=== PATIENT | female | born 1995 | race Caucasian/White ===

== ENCOUNTER → 2020-10-01 14:02 | Outpatient (BNVA) | payer OTHER, SELFPAY | PROVIDERS: PCP Internal Medicine; Referring Provider Internal Medicine; Visit Provider Advanced Practice Midwife | DX: Z30.41 Encounter for surveillance of contraceptive pills (principal) | CPT/HCPCS: 99212 ==

== ENCOUNTER 2020-12-31 09:21 | Outpatient (REF) | payer OTHER, SELFPAY ==
--- NOTE | ~2020-12-31 | XR_ITS ---
EXAMINATION: XR FOOT, LEFT CLINICAL INFORMATION: Pain in left foot COMPARISON: None TECHNIQUE: AP, lateral, and oblique views of the left foot. FINDINGS: The bones and soft tissues are normal. No fracture. Alignment is anatomic. Joint spaces are maintained. XR/XR foot LT min 3V IMPRESSION: Normal left foot.
== END 2020-12-31 09:22 | disposition home or self-care (01) ==
LOC: HO.HMGCX 09:21
PROVIDERS: PCP Internal Medicine; Visit Provider Hospitalist
DX: M79.672 Pain in left foot (principal)
CPT/HCPCS: 73630

== ENCOUNTER 2021-02-26 13:30 | Outpatient (RCR) | payer OTHER, SELFPAY | END 2021-03-25 16:24 | disposition other institution (70) | LOC: HO.OT 13:30 | PROVIDERS: PCP Internal Medicine; Visit Provider Internal Medicine | DX: G56.01 Carpal tunnel syndrome, right upper limb (principal) | CPT/HCPCS: 29125; 97035; 97110; 97165; 97760 ==

== ENCOUNTER 2021-03-30 09:30 | Outpatient (REF) | payer OTHER, SELFPAY ==
--- NOTE | ~2021-03-30 | XR_ITS ---
EXAMINATION: XR CERVICAL SPINE CLINICAL INFORMATION: Neck pain. COMPARISON: None TECHNIQUE: 3 views of the cervical spine were obtained. FINDINGS: There are no prevertebral soft tissue or bony abnormalities demonstrated. No compression fractures or subluxations are identified. Alignment is maintained at the atlanto-axial articulation. The disc spaces are preserved. No endplate changes are seen. The prevertebral soft tissues are normal. The foramina are patent. XR/XR cervical spine 4V IMPRESSION: Unremarkable cervical spine exam.
== END 2021-03-30 09:31 | disposition home or self-care (01) ==
LOC: HO.XRAY 09:30
PROVIDERS: PCP Internal Medicine; Visit Provider Chiropractor
DX: M54.2 Cervicalgia (principal)
CPT/HCPCS: 72050

== ENCOUNTER 2021-09-25 10:09 | Outpatient (REF) | payer OTHER, SELFPAY ==
--- NOTE | 2021-09-25 09:45 | EMG_ITS ---
This is a 26-year-old woman who has had right hand numbness for 5 years and said that she recently dropped something and hurt her leg because she could not hold on. PHYSICAL EXAMINATION: On examination, she is alert and oriented with normal intellectual functions. She suffers from extreme anxiety and actually vomited and became dizzy after the test. Neurological exam was normal. IMPRESSION: Rule out carpal tunnel syndrome. Nerve conduction EMG study: Normal electrodiagnostic study of the right upper extremity with no evidence of carpal tunnel syndrome or nerve entrapment. Normal EMG of the right C5-T1 innervated muscles. MD ABHINAV Bran/PETER / [id number]
== END 2021-09-25 10:10 | disposition home or self-care (01) ==
LOC: HO.NEURO 10:09
PROVIDERS: Visit Provider Internal Medicine
DX: G56.01 Carpal tunnel syndrome, right upper limb (principal)
CPT/HCPCS: 95885; 95910

== ENCOUNTER 2021-10-07 13:58 | Outpatient (REF) | payer OTHER, SELFPAY ==
[2021-10-08 03:00] LABS: CT PCR NOT DETECTED (Not Detect.); NG PCR NOT DETECTED (Not Detect.)
[2021-10-08 09:40] LABS: BV Int Neg Control Negative (Negative); BV Int Pos Control Positive (Positive)
== END 2021-10-07 13:59 | disposition home or self-care (01) ==
LOC: HO.LAB 13:58
PROVIDERS: Visit Provider Advanced Practice Midwife
DX: Z30.09 Encounter for other general counseling and advice on contraception (principal); Z20.2 Contact with and (suspected) exposure to infections with a predominantly sexual mode of transmission; E66.9 Obesity, unspecified; Z68.31 Body mass index [BMI] 31.0-31.9, adult; Z71.3 Dietary counseling and surveillance
CPT/HCPCS: 87480; 87491; 87510; 87591; 87660; 88142

== ENCOUNTER 2022-10-10 14:04 | Outpatient (REF) | payer OTHER, SELFPAY | END 2022-10-10 14:05 | disposition home or self-care (01) | LOC: HO.LNP 14:04 | PROVIDERS: Visit Provider Advanced Practice Midwife | DX: Z01.419 Encounter for gynecological examination (general) (routine) without abnormal findings (principal) | CPT/HCPCS: 88142 ==

== ENCOUNTER 2023-07-03 14:54 | Outpatient (AMB) | payer OTHER, SELFPAY ==
--- NOTE | 2023-07-03 15:03 | AM.OFFVISNUR ---
Intake Intake Visit Reasons: tdap Allergies amoxicillin Allergy (Intermediate, Verified 10/10/22 13:30) rash Immunizations Boostrix Tdap Performing Provider: Shayna Almeida MD Administered by: Akua Barnard RN on 07/03/23 15:10 Dose Route Admin Location Lot Number Expiration Date NDC [facility] Administrator 0.5 mL IM Left Deltoid [id number] 10/14/25 [id number] [employer] VIS Given Date VIS Provided VIS Publication Date 07/03/23 Single Vaccine 21 Eligibility Eligibility Date Funding Source Not [facility] Eligible 07/03/23 Private Coding Diagnoses Assessment & Plan Assessment & Plan Orders: Orders TDaP Immunization Today Z23 - Encounter for immunization
== END 2023-07-03 15:11 | disposition home or self-care (01) ==
PROVIDERS: PCP Internal Medicine; Visit Provider Internal Medicine
DX: Z23 Encounter for immunization (principal)
CPT/HCPCS: 90471; 90715

== ENCOUNTER 2023-08-20 10:08 | Outpatient (AMB) | payer OTHER, SELFPAY ==
[2023-08-20 10:22] VITALS: BP 110/82; PULSE 83; O2SAT 98; BMI 28.8
--- NOTE | 2023-08-20 10:22 | A.OFFPC_ITS ---
Vital Signs 08/20/23 10:22 Height 5 ft 4 in Weight 168 lb BMI 28.8 BP 110/82 Blood Pressure Location Lt brachial Position Sitting Pulse 83 Pulse Source Pulse Oximeter Pulse Oximetry (%) 98 Oxygen Delivery Method Room Air Intake Visit Reasons: physical exam Intake Note: Patient here for a physical exam Director Of Optimization Required: No Accompanied by: Self / Same As Patient Allergies amoxicillin Allergy (Intermediate, Verified 08/20/23 10:28) rash Medication List - Last Reconciled 08/20/23 by Shayna Almeida MD norgestimate-ethinyl estradiol 0.25-35 mg-mcg 1 tab PO DAILY sertraline 75 mg (1.5 x 50 mg) PO DAILY 90 days Tobacco use date assessed: 08/20/23 Dental Screening Dental Screen Date: 08/20/23 Did you have a dental visit in the last 12 months?: No Did you have a dental problem in the last 6 months where you did not have access to dental care?: No Was dental information given to patient?: Patient has dentist HPI HPI Comments History of Present Illness Details This is a 28-year-old female that comes for her physical exam. Last Pap smear was October 2022 and was normal. No chest pain or shortness of breath. She intentionally lost weight. Has mild major depression stable with sertraline and she does follows up with counseling. [facility] Medical History Class 1 obesity with body mass index (BMI) of 31.0 to 31.9 in adult Class 1 obesity with body mass index (BMI) of 33.0 to 33.9 in adult BLANKA (generalized anxiety disorder) Immunization due Immunization history incomplete Mild recurrent major depression Right carpal tunnel syndrome Surgical History History of wisdom tooth extraction Family History Maternal Grandmother Throat cancer Maternal Grandfather Stroke Heart attack Family/Other Mental health disorder Substance use disorder Father No problems noted. Mother No problems noted. Social History Household Members: Family Housing: House Alcohol intake: current Alcohol intake frequency: holidays/special occasions only Alcohol type: hard liquor Patient Tobacco Use Status: Never used Tobacco e-Cigarette/Vaping Use: Never Used Second Hand Smoke Exposure: No Substance Use Type: Marijuana service: No Current occupational status: employed Current occupation: [employer] Current occupational exposures/hazards: No Gender identity: Female Cognitive needs: No Hearing needs: No Vision needs: Yes Female Reproductive History Menstrual Age of Menarche: 12 Questionnaire PHQ-9 Over the last 2 weeks, how often have you been bothered by any of the following problems? 1. Little interest or pleasure in doing things: several days 2. Feeling down, depressed, or hopeless: several days 3. Trouble falling or staying asleep, or sleeping too much: not at all 4. Feeling tired or having little energy: several days 5. Poor appetite or overeating: nearly every day 6. Feeling bad about yourself - or that you are a failure or have let yourself or your family down: several days 7. Trouble concentrating on things, such as reading the newspaper or watching television: several days 8. Moving or speaking so slowly that other people could have noticed. Or the opposite - being so fidgety or restless that you have been moving around a lot more than usual: not at all 9. Thoughts that you would be better off or of hurting yourself in some way: not at all Total score: 8 Depression Screening Interpretation: Positive Depression Screening Follow-up: Existing condition and Community Mental Health Worker F/U Depression Screening Done: Yes 57501 - PHQ-9 Billing: Yes Source: Developed by Drs. Jose Eduardo Latif, Rosa Doyle, Montrell Domínguez and colleagues, with an educational vane from [employer]. Thrive Questionnaire Date Thrive assessed: 08/20/23 I am a: Patient What is your living situation today?: I have a steady place to live Within the past 12 months, did the food you bought not last and you didn't have the money to get more?: Never true Within the past 12 months, did you worry whether your food would run out before you got money to buy more?: Never true Do you have trouble paying for medicines?: No Do you have trouble getting transportation to medical appointments?: No Do you have trouble paying your heating and electricity bill?: No Do you have trouble taking care of your child, family member or friend?: No Do you have trouble with day-to-day activities such as bathing, preparing meals, shopping, managing finances, etc.?: No Are you currently unemployed and looking for a job?: No Are you interested in more education?: No Please select the resources that you would like help with: None Currently or been in a relationship where the following occur: no concerns reported AUDIT C Alcohol Use Questionnaire (AUDIT-C) 1. How often do you have a drink containing alcohol?: Never Total Score: 0 BLANKA-7 AMB Questionnaire BLANKA-7 Date BLANKA - 7 assessed: 08/20/23 Feeling nervous, anxious, or on edge: 1 = Several days Not being able to stop or control worryin = Not at all Worrying too much about different things: 1 = Several days Trouble relaxin = Not at all Being so restless that it is hard to sit still: 0 = Not at all Becoming easily annoyed or irritable: 1 = Several days Feeling afraid as if something awful might happen: 0 = Not at all Total BLANKA-7 score (0-4 normal; 5-9 mild; 10-14 moderate; 15-21 severe): 3 Source: Developed by Drs. Jose Eduardo Latif, Rosa Doyle, Montrell Domínguez and colleagues, with an educational vane from [employer]. BLANKA-7 Assessment Billing BLANKA-7 Assessment Tool: BLANKA-7 Assessment 51023 Review of Systems Const All systems reviewed & are unremarkable except as noted in HPI and below Eyes Reports no additional complaints, Denies change in vision and Denies other visual disturbances Card Denies chest pain at rest, Denies chest pain with activity, Denies edema, Denies irregular heart rhythm, Denies claudication, Denies dyspnea, Denies dyspnea on exertion, Denies orthopnea, Denies paroxysmal nocturnal dyspnea and Denies slow heart rate Resp Denies cough, Denies dyspnea and Denies dyspnea on exertion GI Denies abdominal pain, Denies change in bowel habits, Denies excessive flatus, Denies nausea and Denies vomiting Denies urinary incontinence, Denies urinary hesitancy and Denies urinary urgency Musc Denies abnormal gait, Denies atrophy, Denies deformity and Denies limited range of motion Skin/Breast Denies bleeding lesions, Denies changing lesions and Denies rash Neuro Denies abnormal gait and Denies lack of coordination Physical exam (Primary Care) Vital Signs: Last Vital Signs Pulse 83 08/20/23 10:22 BP 110/82 08/20/23 10:22 Pulse Ox 98 08/20/23 10:22 Oxygen Delivery Method Room Air 08/20/23 10:22 BMI result Body Mass Index 28.8 Tobacco/Smoking Status: Tobacco use Status Tobacco use date assessed 08/20/23 08/20/23 10:26 Patient Tobacco Use Status Never used Tobacco 08/20/23 10:26 e-Cigarette/Vaping Use Never Used 08/20/23 10:26 PHQ-9: PHQ-9 Score PHQ-9: Total score 8 08/20/23 10:26 Depression Screening Interpretation: Positive Depression Screening Follow-up: Existing condition and Community Mental Health Worker F/U Thrive Assessment: Date of Thrive Assessment Date Thrive assessed 08/20/23 08/20/23 10:26 Currently or been in a relationship where the following occur: no concerns reported Const Orientation/consciousness: patient oriented x3 HENMT Head: Yes normal to inspection, Yes normocephalic and Yes atraumatic Ears: external ears normal Eyes General: appearance normal, both eyes and all related structures Eyelids: Yes eyelids normal Conjunctivae: conjunctivae normal Neck Neck: Yes normal visual inspection and Yes supple Resp Effort & Inspection: normal respiratory effort Auscultation: clear to auscultation bilaterally Cardio Jugular venous distension: no JVD Rate: regular rate Rhythm: regular rhythm Heart sounds: S1 normal heart sound present and S2 normal heart sound present GI Inspection: Yes normal to inspection Palpation (GI): Soft to palpation and nontender Auscultation: normal bowel sounds Skin General skin exam: no rashes or lesions noted Neuro General: patient oriented x3 and no focal motor deficits Extrem General: Yes full ROM Psych Appearance: grossly normal Office Procedures Flu Questionnaire Does the patient have a severe egg allergy?: No Immunizations flu vacc [id number] 6mos up(PF) 60 mcg(15 mcgx4)/0.5 mL IM syringe Performing Provider: Shayna Almeida MD Performing Location: [facility] Documented (not given) by: RAFIA Chase on 08/20/23 10:27 Reason Not Given: Patient Refused Assessment and Plan Assessment & Plan (1) Encounter for physical examination: Code(s): Z00.00 - Encounter for general adult medical examination without abnormal findings Plan: Repeat in a year. (2) Mild recurrent major depression: Code(s): F33.0 - Major depressive disorder, recurrent, mild Plan: Continue sertraline and counseling. Orders: Orders Influenza [id number] Immunization Today Z23 - Encounter for immunization Comprehensive Jerome. Panel Fast Today Z00.00 - Encounter for general adult medical examination without abnormal findings Lipid Panel Today Z00.00 - Encounter for general adult medical examination without abnormal findings Coding Level of Care Code Est Pt Prev Care 18-39y(85585) Diagnoses Encounter for physical examination Z00.00 Mild recurrent major depression F33.0 Additional Codes BLANKA-7 Assessment Billing - BLANKA-7 Assessment Tool: BLANKA-7 Assessment 34570 ([id number]) Time Spent (min) 31
== END 2023-08-20 10:37 | disposition home or self-care (01) ==
PROVIDERS: Visit Provider Internal Medicine
DX: Z00.00 Encounter for general adult medical examination without abnormal findings (principal); F33.0 Major depressive disorder, recurrent, mild
CPT/HCPCS: 96127; 99395

== ENCOUNTER 2023-10-14 13:08 | Outpatient (AMB) | payer OTHER, SELFPAY ==
--- NOTE | 2023-10-14 13:14 | MHC.OFFVIS ---
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 annual exam/confirmed Kier Operator Required: No Onion Tier: Onion Tier Present Allergies amoxicillin Allergy (Intermediate, Verified 10/14/23 13:15) rash Medication List - Last Reconciled 10/14/23 by Tabatha Bassett CNM ascorbate calcium (vitamin C) 500 mg PO DAILY norgestimate-ethinyl estradiol 0.25-35 mg-mcg 1 tab PO DAILY sertraline 75 mg (1.5 x 50 mg) PO DAILY 90 days Is last menstrual period known: Yes Last menstrual period: 09/30/23 Do you need a note to return to daycare/school/sports/work: No HPI CREDIT COLLECTIONS REP annual exam/confirmed HPI Details 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 She has no history of abnormal Paps and her last 1 was negative and she is not due for a Pap this year. She has no concerns about STIs and declines testing at this visit today. She says her periods are normal in come right on time with her control pills. She says she has had depression since she is 6 years old and she gets very severe PMDD which is better managed now with her control pills and sertraline which she also takes. She has a therapist and psychiatrist. She also uses medical marijuana when she moves to and that helps the migraines that she gets with the PMDD, still in all the migraines are much better now that she is on the control pills and were not made worse with the pills. She is not currently interested in changing things up from this regimen at this time. 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 She is very active with their the kids at work and when she comes home she is pretty tired she eats about 2 meals a day and tries to eat well. [facility] Medical History Class 1 obesity with body mass index (BMI) of 31.0 to 31.9 in adult Class 1 obesity with body mass index (BMI) of 33.0 to 33.9 in adult BLANKA (generalized anxiety disorder) Immunization due Immunization history incomplete Mild recurrent major depression Right carpal tunnel syndrome Surgical History History of wisdom tooth extraction Family History Maternal Grandmother Throat cancer Maternal Grandfather Stroke Heart attack Family/Other Mental health disorder Substance use disorder Father No problems noted. Mother No problems noted. Social History Household Members: Family Housing: House Alcohol intake: current Alcohol intake frequency: holidays/special occasions only Alcohol type: hard liquor Patient Tobacco Use Status: Never used Tobacco e-Cigarette/Vaping Use: Never Used Second Hand Smoke Exposure: No Substance Use Type: Marijuana service: No Current occupational status: employed Current occupation: [employer] Current occupational exposures/hazards: No Gender identity: Female Cognitive needs: No Hearing needs: No Vision needs: Yes Female Reproductive History Menstrual Age of Menarche: 12 Duration of menses: 6-7 days Date of last menstrual period: 09/30/23 control method: pills Total pregnancies: 0 Date of last pap smear: 10/13/22 History of abnormal pap smear: No Physical Exam Vital Signs: Last Vital Signs BP 122/72 10/14/23 13:16 BMI result Body Mass Index 29.0 Const General: healthy appearing, comfortable, no acute distress, well developed and alert Nutritional Appearance: average body habitus Orientation/consciousness: patient oriented x3 Limitations: no limitations HEENT Head: Yes normocephalic Neck Neck: Yes normal visual inspection Chest Chest palpation & inspection: normal inspection of the chest Breast/axilla inspection: normal inspection of the breasts and normal inspection of the axillae Breast/axilla palpation: normal palpation of the breasts and normal palpation of the axillae Resp Effort & Inspection: normal respiratory effort GI Inspection: Yes normal to inspection, No Abdominal wall edema and No distended Palpation (GI): Soft to palpation and nontender Other: Normal speculum exam vagina pink moist with end of menses. Cervix nulliparous uterus small anteverted mobile nontender. Adnexa nontender not enlarged good tone with Kegel. General: Yes bladder normal to palpation External Female Exam: normal external appearance and normal appearance of the urethra Speculum Exam - Vagina: normal appearance of the vagina, normal palpation and normal vaginal discharge Speculum Exam - Cervix: normal appearance of the cervix, normal palpation and nontender Bimanual exam- vagina & uterus: normal bimanual exam, normal palpation, uterine size normal, bladder normal to palpation, consistency normal, normal palpation, uterine mobility normal, uterine shape normal, No Cervical tenderness present, non-tender and no cervical motion tenderness Bimanual Exam- Adnexa, other: normal adnexae, no masses, normal and No adnexal tenderness Neuro General: patient oriented x3 Results Reviewed Results Reviewed: Name: Shannan Lam Age/Sex: 27/F Attending: Tabatha Bassett CNM : 1995 Submitted by: Tabatha Bassett CNM Copies to: MR #: [id number] Status: DEP REF Collected: 10/10/22 Location: [facility] Received: 10/13/22 Interpretation Satisfactory for evaluation. No endocervical cells seen. Negative for intraepithelial lesion or malignancy. Clinical Information LMP: 10/11/22 Previous PAP test: 09/03/18, WNL Material Received ThinPrep-Cervical Electronically Signed By: Sobeida Clark 10/31/22 1614 The Pap Test is a screening procedure with the inherent possibility of both false negative and false positive results. Results should be interpreted in the context of historic and current clinical findings. Reliability of the Pap Test is enhanced by performing the test on a regular repetitive basis. Patient: Shannan Lam Age/Sex: 27/F MR#: [id number] Page 1 of 1 Assessment & Plan Assessment & Plan (1) Well woman exam with routine gynecological exam: Code(s): Z01.419 - Encounter for gynecological examination (general) (routine) without abnormal findings (2) Cervical cancer screening: Comment: 10/10/2022 Pap is negative Code(s): Z12.4 - Encounter for screening for malignant neoplasm of cervix (3) Counseling for control, oral contraceptives: Code(s): Z30.09 - Encounter for other general counseling and advice on contraception (4) PMDD (premenstrual dysphoric disorder): Code(s): F32.81 - Premenstrual dysphoric disorder (5) History of depression: Code(s): Z86.59 - Personal history of other mental and behavioral disorders Plan Patient is here here for pill renewal and her annual exam she declines STI testing. We discussed her history of depression and PMDD and she says both her made better with use of the control pills which also improve her migraines though she still does get them and she has been on the pills with improvement since age 18. She is not interested in changing anything at this time she she also uses medical marijuana when she needs to for the migraine headaches which she gets when she is premenstrual as well. Refills were sent to her pharmacy which is now going to be the [facility]. Reviewed it whether not she had a need for future plans for childbearing and stopping pills but she said not at this time she wants to get the depression under better control and finances as well. Her partner has 2 children so theyre busy. Medications: Refilled norgestimate-ethinyl estradiol 0.25-35 mg-mcg 1 tab PO DAILY 84 tabs 4RF norgestimate-ethinyl estradiol 0.25-35 mg-mcg 1 tab PO DAILY 84 tabs 4RF Coding Level of Care Code Est Pt Prev Care 18-39y(97910) Diagnoses Well woman exam with routine gynecological exam Z01.419 Cervical cancer screening Z12.4 Counseling for control, oral contraceptives Z30.09 PMDD (premenstrual dysphoric disorder) F32.81 History of depression Z86.59
[2023-10-14 13:16] VITALS: BP 122/72; BMI 29.0
== END 2023-10-14 13:56 | disposition home or self-care (01) ==
PROVIDERS: Visit Provider Advanced Practice Midwife
DX: Z01.419 Encounter for gynecological examination (general) (routine) without abnormal findings (principal); Z12.4 Encounter for screening for malignant neoplasm of cervix; Z30.09 Encounter for other general counseling and advice on contraception; F32.81 Premenstrual dysphoric disorder; Z86.59 Personal history of other mental and behavioral disorders
CPT/HCPCS: 99395

== ENCOUNTER → 2023-10-14 13:08 | Outpatient (BNVA) | payer OTHER, SELFPAY | PROVIDERS: Visit Provider Advanced Practice Midwife ==

== ENCOUNTER 2024-08-22 12:54 | Outpatient (AMB) | payer OTHER, SELFPAY ==
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
[2024-08-22 12:58] VITALS: BP 110/72; BMI 25.2
== END 2024-08-22 13:18 | disposition home or self-care (01) ==
PROVIDERS: PCP Internal Medicine; Visit Provider Internal Medicine
DX: Z00.00 Encounter for general adult medical examination without abnormal findings (principal); F33.1 Major depressive disorder, recurrent, moderate; M25.511 Pain in right shoulder; G89.29 Other chronic pain

== ENCOUNTER → 2024-08-22 12:54 | Outpatient (BNVA) | payer OTHER, SELFPAY | PROVIDERS: PCP Internal Medicine; Visit Provider Internal Medicine | DX: Z00.00 Encounter for general adult medical examination without abnormal findings (principal); F33.1 Major depressive disorder, recurrent, moderate; G89.29 Other chronic pain; M25.511 Pain in right shoulder; Z28.21 Immunization not carried out because of patient refusal | CPT/HCPCS: 96127 ==

== ENCOUNTER 2024-10-18 15:00 | Outpatient (AMB) | payer OTHER, SELFPAY ==
[2024-10-18 15:06] VITALS: BP 118/70; BMI 24.2
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
--- OUTSIDE RECORDS SUMMARY | 2024-10-19 22:18 | XMS_ITS | Data Portability ---
Author Organization [facility], [address] Address [address] [place] [address] Care Team Providers Care Continuity Person Name Role Phone JEN THOMASON Primary Care Provider Assessment No assessment recorded. Plan of Treatment Reminders Order Date Submit Date Provider Last Modified By Organization Details Last Modified Time Details Appointments None recorded. Lab None recorded. Referral None recorded. Procedures None recorded. Surgeries None recorded. Imaging XR, toe(s), 2 or more view 2022 023 [facility], [address] [place] [address], [address], 21:02:09 Medication Orders cyclobenzap rine 10 mg tablet 2022 023 [facility] #[id number], [address] [place], [address], 19:34:55 diclofenac sodium 50 mg tablet,steve yed release 2022 023 [facility] #[id number], [address] [place], [address], 19:34:56 Patient TargetsNo targets recorded. Patient Instructions Encounter Date Encounter Id Patient Instructions Last Modified By Organization Details Last Modified Time 01/15/2023 [id number] neck pain: care instructions [id number] Not available 01/15/2023 12:54:07 05/14/2023 [id number] contusion: care instructions [email or web address] Not available 05/14/2023 20:36:11 Based on your presentation and exam, you are diagnosed with an Toe/Foot Contusion. The x-ray did not show any acute fracture per you from the Emergency Room - we are not going to repeat that x-ray at this time. My suggestions for this condition include: 1. Ice 2. Elevate 3. Rest 4. Make sure you stretch your Foot/ankle regularly for the next 1-2 weeks. (Providing Handout) 5. Take Ibuprofen or Tylenol if you do not have any allergies to these medications. If you take a blood thinner you should not take NSAIDS like Ibuprofen. 6. After 3 days of icing - I would switch to heat - this will help reabsorb any bruising or swelling. If you are still having pain after 7-10 days, I would suggest that you follow up with our office again or schedule and appointment with an orthopedist. I would be seen more urgently if you develop any of the following symptoms. 1. Numbness 2. Cold Extremities 3. Worsening Pain 4. Skin Redness 5. Calf Swelling Thank you for using [facility], please contact our office if you have any questions or concerns. [email or web address] Not available 05/14/2023 20:34:33 Reason for Referral None Reported. Results Created Date Observation Date Name Description Value Unit Range Abnormal Flag Note LastModifiedBy Organization Detail LastModifiedTime 05/14/20 23 05/14/2023 XR, toe(s ), 2 or more view No observ ation record ed. [email or web address] [facility] [address] [place], [address], 05/15/2023 08:09:45 Result Notes None recorded. Problems Name Problem SNOMED Code Status Onset Date Resolution Date Notes Provider Name and Address Organization Details Recorded Time Premenstrual dysphoric disorder 646562 Active 2022 CEASARSami HURTADO null, PA - [facility] 3 12:18:05 Mixed anxiety and depressive disorder 999274786 Active 2022 CEASARSami HURTADO null, PA - [facility] 3 12:18:12 Problem Notes None recorded. Procedures Surgical History Date Name Laterality Status Provider Name and Address Organization Details Recorded Time 7 extraction of wisdom tooth completed CEASAR HURTADO PA - [facility] 01/15/2023 12:19:00 Imaging Results Imaging Date Name Status LastModified by Organiz ation Details LastModified Time 05/14/2023 XR, toe(s), 2 or more view completed [facility] [address] [facility], [place], [address], 05/15/2023 08:09:45 Procedure Notes None recorded. Medical Equipment None Reported. Allergies Allergen ID Allergen Name Allergen Category Reaction Reaction Severity Criticality Documentation Date Start Date Code Code System Note Provider Name and Address Organization Details Recorded Time 038905 amoxicill in medicatio n rash moderate Not available 01/15/2023 723 [facility] CEASAR herrera PA - [facility] 3 12:16:18 Medications Name Sig Start Date Stop Date Status Note LastModified by Organization Details LastModified Time cyclobenzapri ne 10 mg tablet Take 1 tablet 3 times a day by oral route for 10 days. 05/14 completed Not Available Not Available Not Available sertraline 75 mg active Not Available Not Av ailable Not Available norgestimate 0.25 mg-ethinyl estradiol 35 mcg (21) tablet Take by oral route. active Not Available Not Available No t Available Vitals Date Recorded Body height Body mass index (BMI) Body weight Respiratory rate Oxygen saturation Oxygen saturation in Arterial blood by Pulse oximetry Heart rate Body temperature Systolic blood pressure Diastolic blood pressure Provider Name and Address Organization Details Last Updated DateTime 3 162.56 cm 29.2 kg/m2 10310.7 g 18 /min 99 % 99 % 87 /min 99.5 [degF] 121 mm[Hg] 87 mm[Hg] Milli Luna PA - [facility] 3 19:37:00 Date Recorded Body height Body mass index (BMI) Body weight Body temperature Respiratory rate Oxygen saturation Oxygen saturation in Arterial blood by Pulse oximetry Heart rate Systolic blood pressure Diastolic blood pressure Provider Name and Address Organization Details Last Updated DateTime 3 162.56 cm 29.7 kg/m2 03467.4 8 g 97.7 [degF] 18 /min 97 % 97 % 87 /min 108 mm[Hg] 76 mm[Hg] CEASAR GRAFFO PA - [facility] 12:20:08 Social History Question Answer Notes LastModified by Organizat ion Details LastModified Time Tobacco Smoking Status Never Smoker CEASAR herrera, PA - [facility] 01/15/2023 12:18:45 What Is Your Level Of Alcohol Consumption? None Information not available 01/15/2023 Which Illicit Or Recreational Drugs Have You Used? Marijuana Information not available 01/15/2023 Do You Use Any Illicit Or Recreational Drugs? Yes Information not available 01/15/2023 Have You Recently Traveled Abroad? No Information not available 01/15/2023 Do You Or Have You Ever Used Any Other Forms Of Tobacco Or Nicotine? No Information not available 01/15/2023 Sex: Unknown Functional Status None recorded. Mental Status None recorded. Family History Relationship Description Onset Age of this Age Resolved Age Notes LastModified by Organization Details LastModified Time Father Hypertensive disorder Not available 2022 12:18:25 Father Hypercholest erolemia Not available 2022 12:18:31 Medical History No medical history recorded. Gynecological History Statement/Question Response Date of LMP 04/16/2023 Is there any chance of ? No Obstetrics History GPAL:G 0 P 0 0 0 0 Immunizations Vaccine Type Date Status Note Provider Nam e and Address Organization Details Recorded Time COVID-19, mRNA, LNP-S, PF, 100 mcg/0.5mL dose or 50 mcg/0.25mL dose 11/27/2020 completed CEASAR DEPINTO null, PA - [facility] 01/15/2023 12:16:08 COVID-19, mRNA, LNP-S, PF, 100 mcg/0.5mL dose or 50 mcg/0.25mL dose 12/26/2020 completed CEASAR DEPINTO null, PA - [facility] 01/15/2023 12:16:08 COVID-19, mRNA, LNP-S, PF, 100 mcg/0.5mL dose or 50 mcg/0.25mL dose 09/20/2021 completed CEASAR DEPINTO null, PA - [facility] 01/15/2023 12:16:08 Hep A, adult 07/07/2016 completed CEASAR DEPINTO null, PA - [facility] 01/15/2023 12:16:08 Hep A, adult 09/18/2015 completed CEASAR DEPINTO null, PA - [facility] 01/15/2023 12:16:08 Past Encounters Encounter ID Performer Location Encounter Start Date Encounter Closed Date Diagnosis/Indication Diagnosis SNOMED-CT Code Diagnosis ICD10 Code [id number] [address] [place] [address] 06/06/2017 16:03:59 06/06/2017 17:34:03 [id number] MARILEE CHAIDEZ MD [address] [place] [phone] 01/15/2023 10:38:04 01/15/2023 13:00:35 Strain of muscle of left shoulder 1039992069 [id number] S46.012A [id number] CLAUDIA RICO [address] [place] [address] 05/14/2023 18:52:21 05/14/2023 20:37:55 Pain of toe of right foot 3305037011 45996 M79.674 Contusion of lesser toe of right foot 2291038043 9870056 S90.121A Health Concerns Section Related Observation LastModified by Organization Detai ls LastModified Time None Recorded Concern Status LastModified by Organization Details LastModified Time None Recorded Advance Directives Directive None Recorded Payers Encounter Date Sequence Insurance Name Policy Number Policy Lopez Covered Member ID Lopez Member ID Guarantor Name 06/06/2017 1 [place] [id number] Nestor Lam [id number] Shannan Lam 01/15/2023 1 [facility] [id number] Shannan Lam [id number] Shannan Lam 05/14/2023 1 [facility] [id number] Shannan Lam [id number] Shannan Lam Notes Date Note Type Note Provider Name and Address Organization Details Recorded Time 3 text/html Neck UCReported bypatient.Location:left Quality:aching; sharp Severity:severe; pain level 8/10 Timing:acute Context:cannot identify Alleviating Factors:nothing helps Aggravating Factors:sitting; twisting MARILEE CHAIDEZ MD [address] [place], [address], PA - [facility] 01/15/2023 13:31:17 3 text/html ToesReported bypatient.source of patient informationInformation obtained from patient; Patient arrived at Urgent Care ambulatory Location:right Quality:sharp Severity:moderate Duration:2 days Timing:acute Context:The patient stubbed her foot in the middle of the night. Associated Symptoms:swelling;ecchymosi s Previous Surgery:none Prior Imaging:noneNotes:The patient reports that she stubbed her toe in the middle of the night 2 days ago. PAin in the 4th digit on the right foot. She reports she rested but went back to work today and is having pain. There is bruising on the foot. The patient reports no previous history of toe pain but she does have ankle pain chronically. CLAUDIA RICO [address] [facility] [place], [address], PA - [facility] 05/14/2023 20:40:36 OBGyn Episode No OBEpisode recorded.
== END 2024-10-18 15:54 | disposition home or self-care (01) ==
PROVIDERS: PCP Internal Medicine; Visit Provider Advanced Practice Midwife
DX: R45.86 Emotional lability (principal)
CPT/HCPCS: 99213

== ENCOUNTER 2025-03-17 08:30 | Outpatient (RCR) | payer BC, SELFPAY ==
[2025-03-03 09:38] VITALS: BP 90/60; PULSE 80; TEMP 37.1; BMI 25.3
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
--- NOTE | 2025-03-06 18:55 | P.HPPSP_ITS ---
HPI Date of Service: 03/06/25 Chief Complaint: depression,anxiety Sources of Information: patient interviewed, chart reviewed and crisis/core team assessment reviewed [facility] Medical History (Updated 03/09/25 @ 08:21 by Arielle Browne MD) PMDD (premenstrual dysphoric disorder) GERD (gastroesophageal reflux disease) History of depression Class 1 obesity with body mass index (BMI) of 31.0 to 31.9 in adult Class 1 obesity with body mass index (BMI) of 33.0 to 33.9 in adult BLANKA (generalized anxiety disorder) Immunization due Immunization history incomplete Mild recurrent major depression Right carpal tunnel syndrome Surgical History History of wisdom tooth extraction Diagnostics Vital Signs (24Hr): BMI result Body Mass Index 25.3 Meds/Allergies Meds Home Medications ?Medication ?Instructions ?Recorded ?Confirmed ?Type drospirenone 3 mg-ethinyl 1 tab PO DAILY 03/03/25 03/03/25 History estradiol 0.02 mg tablet (Milady (28)) Allergies Allergies Allergy/AdvReac Type Severity Reaction Status Date / Time amoxicillin Allergy Intermediate rash Verified 10/18/24 15:07 lavender (Lavandula Allergy Hives, SOB Verified 03/03/25 09:36 angustifolia) Laundry detergent Allergy Rash Uncoded 03/03/25 09:37 Assessment & Plan Assessment & Plan (1) MDD (major depressive disorder), recurrent severe, without psychosis: Status: Acute Code(s): F33.2 - Major depressive disorder, recurrent severe without psychotic features (2) PTSD (post-traumatic stress disorder): Status: Acute Code(s): F43.10 - Post-traumatic stress disorder, unspecified Plan Admit to [facility] VS reviewed: afebrile, BP ? bpm start sertraline 25 mg qd continue other regular medications? Routine lab work ordered as indicated EKG, routine for baseline QTc for medication considerations as indicated UDS as indicated [facility] reviewed Continue to monitor as per protocol Patient educated on: diagnosis and medication risk/benefits Informed Consent: understands Reason for continued partial hosp. stay Substantial Risk for: inability to function and med/psych decompensation Certification I certify that partial hospital treatment is medically necessary due to the symptoms and problems resulting from the patient's mental illness and the failure to treat the patient at the [facility] hospital level of care would likely result in the patient requiring inpatient psychiatric care which could not be prevented at a less intensive level of care. Time Spent With Patient Time: Total time managing care of this patient today _60___ minutes.
--- NOTE | 2025-03-09 16:00 | HO.PHP ---
Pt's case was opened and reviewed in treatment team.
--- NOTE | 2025-03-15 15:39 | HO.PHP ---
and Shannan called [facility] together today to inquire of Med Provider services. A referral was emailed to [facility] staff by [facility], and will be completed per the request of Shannan for a new OP Med Provider.
--- NOTE | 2025-03-17 23:24 | P.PNPSP_ITS ---
Subjective Subjective Date of Service: 03/17/25 Reason For Visit: depression,anxiety Interim History: Patient seen for follow-up, anticipating discharge at the end of program today.? Reports no acute issues or concerns. Medication compliant, medications well- tolerated. Denies any adverse effects.? Mood is stable.? Denies any hopelessness or SI. Denies thoughts of harming self or others at this time. Denies any aggressive ideation or HI. Denies any paranoia or AH or VH. Sleep, appetite, energy stable. Alert, oriented, in no acute distress. Calm, cooperative. Mood stable, affect appropriate. Speech normal. Thought process linear, coherent, more goal- directed. Thought content related to stressors, future-oriented, denies any helplessness, hopelessness or SI.? No aggressive ideation or HI. No paranoia or delusional content elicited. No evidence of psychosis. Insight and judgment f air-good. Discharge from [facility] Continue regular medications Refills sent to pharmacy Will defer further medication management to outpatient provider *Safety plan reviewed *Discharge diagnoses, treatment course, discharge plan have been reviewed with patient (including medication regime, medication management, potential side effects) as well as treatment rationale were also revisited *Discharge paperwork signed and given to patient, copy sent for scanning to chart Diagnostics Vital Signs (24Hr): BMI result Body Mass Index 25.3 Assessment & Plan Certification I certify that partial hospital treatment is medically necessary due to the symptoms and problems resulting from the patient's mental illness and the failure to treat the patient at the partial hospital level of care would likely result in the patient requiring inpatient psychiatric care which could not be prevented at a less intensive level of care. Total time managing care of this patient today ____ minutes. Discharge Plan Discharge Attending provider: Arielle Browne Medications: New sertraline 50 mg tablet 50 mg PO DAILY Qty: 30 0RF Continued drospirenone-ethinyl estradiol [Milady (28)] 3-0.02 mg tablet 1 tab PO DAILY Patient Comments: Patient stated she plans on restarting this medication after her menses. Stand Alone Forms: Patient Portal Discharge page Print Language: Albanian
== END 2025-03-17 23:59 | disposition home or self-care (01) ==
LOC: HO.PHPA 08:30
PROVIDERS: Visit Provider Psychiatry & Neurology Psychiatry
DX: F33.2 Major depressive disorder, recurrent severe without psychotic features (principal); F43.10 Post-traumatic stress disorder, unspecified
CPT/HCPCS: 90853

== ENCOUNTER → 2025-03-17 08:30 | Outpatient (BNV) | payer BC, SELFPAY | PROVIDERS: Visit Provider Psychiatry & Neurology Psychiatry | DX: F33.2 Major depressive disorder, recurrent severe without psychotic features (principal); F43.10 Post-traumatic stress disorder, unspecified | CPT/HCPCS: 99213 ==

== ENCOUNTER 2025-08-30 09:22 | Outpatient (AMB) | payer OTHER, SELFPAY ==
[2025-08-30 09:24] VITALS: BP 90/60; PULSE 73; RESP 18; TEMP 36.3; O2SAT 98; BMI 22.9
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
--- OUTSIDE RECORDS SUMMARY | 2025-08-30 10:37 | XMS_ITS | Encounter Summary ---
Author Organization [facility] Address [address] [place] [address] Phone Care Team Providers Care Charge Preparation Technician Name Role Phone Tita Andrade MD Primary Care Provider Unava ilable Encounter Details Date Type Department Care Team (Late st Contact Info) Description 12/02/[address] [facility] Family Medicine [address] [place], [place] [phone] Family Medicine, Physician [address] [place] [address] Social History Tobacco Use Types Packs/Day Years Used Date Smoking Tobacco: Some Days Comments:Current some day sm oker Comments Unknown Sex and Gender Information Value Date Recorded Sex Assigned at Not on file Legal Sex Female 5:04 PM EDT Gender Identity Not on file Sexual Orientation Not on file documented as of this encounter Plan of Treatment Not on file documented as of this encounter Visit Diagnoses Not on filedocumented in this encounter Care Teams Charge Preparation Technician Relationship Specialty Start Date End Date Tita Andrade MD PCP - General 06/19/17 documented as of this encounter
--- OUTSIDE RECORDS SUMMARY | 2025-08-30 10:37 | XMS_ITS | Encounter Summary ---
Author Organization [facility] Address [address] [place] [address] Phone Care Team Providers Care Convention Manager Name Role Phone Tita Andrade MD Primary Care Provider Unava ilable Encounter Details Date Type Department Care Team (Late st Contact Info) Description 03/05/2010 Documentation [facility] Family Medicine [address] [place], [place] [phone] Family Medicine, Physician [address] [place] [address] Social History Tobacco Use Types Packs/Day Years Used Date Smoking Tobacco: Never Assessed Comments Unknown Sex and Gender Information Value Date Recorded Sex Assigned at Not on file Legal Sex Female 5:04 PM EDT Gender Identity Not on file Sexual Orientation Not on file documented as of this encounter Plan of Treatment Not on file documented as of this encounter Visit Diagnoses Not on filedocumented in this encounter Care Teams Convention Manager Relationship Specialty Start Date End Date Tita Andrade MD PCP - General 06/19/17 documented as of this encounter
--- OUTSIDE RECORDS SUMMARY | 2025-08-30 10:37 | XMS_ITS | Encounter Summary ---
Author Organization [facility] Address [address] [place] [address] Phone Care Team Providers Care Maintainer Operator Name Role Phone Tita Andrade MD Primary Care Provider Unava ilable Encounter Details Date Type Department Care Team (Late st Contact Info) Description 03/18/[address] [facility] Family Medicine [address] [place], [place] [phone] Family Medicine, Physician [address] [place] [address] Social History Tobacco Use Types Packs/Day Years [...] on filedocumented in this encounter Care Teams Maintainer Operator Relationship Specialty Start Date End Date Tita Andrade MD PCP - General 06/19/17 documented as of this encounter
--- OUTSIDE RECORDS SUMMARY | 2025-08-30 10:37 | XMS_ITS | Encounter Summary ---
Author Organization [facility] Address [address] [place] [address] Phone Care Team Providers Care Program Production Specialist Name Role Phone Tita Andrade MD Primary Care Provider Unava ilable Encounter Details Date Type Department Care Team (Late st Contact Info) Description 03/17/2017 Documentation [facility] Family Medicine [address] [place], [place] [phone] Family Medicine, Physician [address] [place] [address] Social History Tobacco Use Types Packs/Day Years [...] on filedocumented in this encounter Care Teams Program Production Specialist Relationship Specialty Start Date End Date Tita Andrade MD PCP - General 06/19/17 documented as of this encounter
--- OUTSIDE RECORDS SUMMARY | 2025-08-30 10:37 | XMS_ITS | Encounter Summary ---
Author Organization [facility] Address [address] [place] [address] Phone Care Team Providers Care Physician/Ophthalmologist Name Role Phone Tita Andrade MD Primary Care Provider Unava ilable Encounter Details Date Type Department Care Team (Late st Contact Info) Description 03/28/2014 Conversion Encounter [facility] [address] [place] [address] Andres Samano MD [address] [place] [address] Social History Tobacco Use Types Packs/Day Years [...] on filedocumented in this encounter Care Teams Physician/Ophthalmologist Relationship Specialty Start Date End Date Tita Andrade MD PCP - General 06/19/17 documented as of this encounter
--- OUTSIDE RECORDS SUMMARY | 2025-08-30 10:37 | XMS_ITS | Encounter Summary ---
Author Organization [facility] Address [address] [place] [address] Phone Care Team Providers Care Ship Rigger Name Role Phone Tita Andrade MD Primary Care Provider Unava ilable Encounter Details Date Type Department Care Team (Late st Contact Info) Description 03/23/[address] [facility] Family Medicine [address] [place], [place] [phone] Family Medicine, Physician [address] [place] [address] Social History Tobacco Use Types Packs/Day Years [...] on filedocumented in this encounter Care Teams Ship Rigger Relationship Specialty Start Date End Date Tita Andrade MD PCP - General 06/19/17 documented as of this encounter
--- OUTSIDE RECORDS SUMMARY | 2025-08-30 10:37 | XMS_ITS | Encounter Summary ---
Author Organization [facility] Address [address] [place] [address] Phone Care Team Providers Care Imaging Assistant Name Role Phone Tita Andrade MD Primary Care Provider Unava ilable Encounter Details Date Type Department Care Team (Late st Contact Info) Description 03/18/2013 Documentation [facility] Family Medicine [address] [place] [address] Family Medicine, Physician [address] [place] [address] Social History Tobacco Use Types Packs/Day Years [...] on filedocumented in this encounter Care Teams Imaging Assistant Relationship Specialty Start Date End Date Tita Andrade MD PCP - General 06/19/17 documented as of this encounter
--- OUTSIDE RECORDS SUMMARY | 2025-08-30 10:37 | XMS_ITS | Clinical Summary ---
Author Organization [facility] Address [address] [place] [address] Phone Care Team Providers Care Computer Systems Hardware Analyst Name Role Phone Tita Andrade MD Primary Care Provider Unava ilable Immunizations Immunization Administration Dates Next Due DTP 09/25/1997, 6,1996, 996 DTaP 5 2001 HPV, Quadrivalent 10/24/2014,03/28/2014,02/07/20 14 Hep A, Adult 07/07/2016,09/18/2015 Hep B, ped/adol 1996,1996,1996 Hib (PRP-T) 06/27/1997, 6,1996, 996 IPV 2001,1996,1996 MMR 03/25/2000,03/31/1997 Meningococcal Conj (Menactra) MCV4P 02/06/2014 OPV 1996 Tdap 07/17/2008 Varicella 07/17/2008,03/31/1997 Family History Relation Name Status Comments Father Alive Father: Alive a nd well Mother Alive Mother: Alive a nd well Sister Alive Sister: Alive a nd well Social History Tobacco Use Types Packs/Day Years Used Date Smoking Tobacco: Some Days Comments:Current some day sm oker Comments Unknown Sex and Gender Information Value Date Recorded Sex Assigned at Not on file Legal Sex Female 5:04 PM EDT Gender Identity Not on file Sexual Orientation Not on file Last Filed Vital Signs Vital Sign Reading Time Taken Comments Blood Pressure 115/79 02/25/2017 12:00 AM EDT Pulse 95 02/25/2017 12:00 AM EDT Temperature 36.5 C (97.7 F) 02/25/2017 12:00 AM EDT Respiratory Rate - - Oxygen Saturation - - Inhaled Oxygen Concentration - - Weight 59 kg (130 lb) 02/25/2017 12:00 AM EDT Height 162.6 cm (5' 4 ) 02/25/2017 12:00 AM EDT Body Mass Index 22.31 02/25/2017 12:00 AM EDT Plan of Treatment Health Maintenance Due Date Last Done Comments DTaP,Tdap,and Td Vaccines (7 - Td or Tdap) 07/17/2018 07/17/2008, 2001, 09/25/1997, Additional history exists Influenza Vaccines (#1) 2025 COVID-19 Vaccine ( season) 2025 Hepatitis B Vaccines Completed 1996, 1996, 1996 HIB Vaccines Completed 06/27/1997, 02/1996, 1996, Additional history exists MMR Vaccines Completed 03/25/2000, 03/31/1997 IPV Vaccines Completed 2001, 02/1996, 1996, Additional history exists Varicella Vaccines Completed 07/17/2008, 03/31/1997 Meningococcal Vaccine Completed 02/06/2014 HPV Vaccines Completed 10/24/2014, 03/10, 02/06/2014 Hepatitis A Vaccines Aged Out 07/07/2016, 09/18/20 15 No longer eligible based on patient's age to complete this topic Men B Vaccine Aged Out No longer elig ible based on patient's age to complete this topic Pneumococcal Vaccine Aged Out No long er eligible based on patient's age to complete this topic Procedures * Due to [place] [employer] law, this organization might not be sharing sensitive test results. Procedure Name Priority Date/Time Associated Diagnosis Comments CHLAMYDIA AND GONORRHEA, AMPLIFIED Routine 07/08/2016 2:09 PM EDT from Last 3 Months or Most Recently Relevant to Health Maintenance Results * Due to [place] [employer] law, this organization might not be sharing sensitive test results. * Chlamydia and Gonorrhoea, Amplified (07/08/2016 2:09 PM EDT) URINE GC AMP PROBE NEGATIVE [facility] Comment: No Neisseria Gonorrhoeae RNA detected in this patient's sample (REFERENCE RANGE/NORMAL VALUE: NOT DETECTED) NOTE: This test uses associate property manager-mediated amplification method to detect rRNA from C.Trachomatis and N.Gonorrhoeae. A negative result does not preclude infection. In the case of a negative urine result, testing of an endocervical(female) or urethral(male) specimen is recommended if there is high clinical suspicion of infection. The performance characteristics of this test have not been evaluated in children. The Aptima Combo2 assay is not intended for the evaluation of suspected sexual abuse or for other medico-legal indications. The ordering provider should assess if the patient had consensual sex without risk of sexual abuse. Consult the [facility] if needed. Contact phone number . Therapeutic failure or success cannot be determined with the Aptima Combo2 assay since nucleic acid may persist following appropriate antimicrobial therapy. The Centers for Disease Control and Prevention (CDC) recommends confirmatory retesting using culture or a different nucleic acid amplification test when positive results occur, if indicated. Testing performed or reported by [facility], a Service of [employer], [address] [place] [address] [place] [address] [facility] [id number] Felix Johnson MD, PhD, Assistant Football Coach URINE CHLAMYDIA AMP PROBE NEGATIVE [facility] Comment: No Chlamydia Trachomatis RNA detected in this patient's sample (REFERENCE RANGE/NORMAL VALUE: NOT DETECTED) 07/08/2016 2:09 PM EDT Narrative [facility] - 07/08/2016 2:09 PM EDT URINE CHLAMYDIA GC AMP PROBE us Tita Andrade MD LAB MICROBIOLOGY - GENERAL O RDERABLES Final Result [facility] [address] [id number], [place] from Last 3 Months or Most Recently Relevant to Health Maintenance Care Teams Computer Systems Hardware Analyst Relationship Specialty Start Date End Date Tita Andrade MD PCP - General 06/19/17
--- OUTSIDE RECORDS SUMMARY | 2025-08-30 10:37 | XMS_ITS | Encounter Summary ---
Author Organization [facility] Address [address] [place] [address] Phone Care Team Providers Care Product Development Technician Name Role Phone Tita Andrade MD Primary Care Provider Unava ilable Encounter Details Date Type Department Care Team (Late st Contact Info) Description 06/25/2017 Conversion Encounter [facility] - [address] [address] Social History Tobacco Use Types Packs/Day Years [...] on filedocumented in this encounter Care Teams Product Development Technician Relationship Specialty Start Date End Date Tita Andrade MD PCP - General 06/19/17 documented as of this encounter
== END 2025-08-30 09:53 | disposition home or self-care (01) ==
LOC: HO.HMCH 09:23
PROVIDERS: PCP Internal Medicine; Visit Provider Internal Medicine
DX: Z00.00 Encounter for general adult medical examination without abnormal findings (principal); F33.0 Major depressive disorder, recurrent, mild

== ENCOUNTER → 2025-08-30 09:22 | Outpatient (BNVA) | payer OTHER, SELFPAY | PROVIDERS: PCP Internal Medicine; Visit Provider Internal Medicine | DX: Z00.00 Encounter for general adult medical examination without abnormal findings (principal); F33.0 Major depressive disorder, recurrent, mild; F17.290 Nicotine dependence, other tobacco product, uncomplicated | CPT/HCPCS: 96127; 99395 ==